=== PATIENT | female | born 1955 | race Caucasian/White ===

== ENCOUNTER 2016-04-23 21:35 | Emergency (ER) | payer OTHER ==
[~2016-04-23] VITALS: Ht 162.6 cm; Wt 81.6 kg
[~2016-04-23 21:35] MED LIST: ATEN25TA PO; FLUO20CA36 PO
[2016-04-23 22:16] VITALS: BP 124/60
== END 2016-04-23 22:17 | disposition home or self-care (01) ==
LOC: ER 21:37
DX: J40 Bronchitis, not specified as acute or chronic (principal); I10 Essential (primary) hypertension; F32.9 Major depressive disorder, single episode, unspecified; G89.29 Other chronic pain; M54.9 Dorsalgia, unspecified; Z88.0 Allergy status to penicillin
CPT/HCPCS: 71010; 93005; 99284; A4606; Z7610

== ENCOUNTER 2016-05-09 22:33 | Emergency (ER) | payer OTHER ==
[~2016-05-09] VITALS: Ht 162.6 cm; Wt 86.2 kg
[2016-05-10] MEDS ORDERED: ACETAMINOPHEN 325 MG TABLET ONE (01:04)
[2016-05-10 01:14] VITALS: BP 147/77
[2016-05-10] MEDS ORDERED: ACETAMINOPHEN 325 MG TABLET PO ONE (01:30)
== END 2016-05-10 01:15 | disposition home or self-care (01) ==
LOC: ER 22:35
DX: S60.512A Abrasion of left hand, initial encounter (principal); Y08.89XA Assault by other specified means, initial encounter; Y93.89 Activity, other specified; Y92.89 Other specified places as the place of occurrence of the external cause; Y99.8 Other external cause status; M54.9 Dorsalgia, unspecified; G89.29 Other chronic pain; F32.9 Major depressive disorder, single episode, unspecified; Z88.0 Allergy status to penicillin
CPT/HCPCS: 73130; 99284; A4606; Z7610

== ENCOUNTER 2016-06-28 18:29 | Emergency (ER) | payer OTHER ==
[~2016-06-28] VITALS: Ht 162.6 cm; Wt 81.6 kg
[2016-06-28 18:33] VITALS: BP 182/87
[2016-06-28] MEDS ORDERED: DIPH25CA83 PO (18:39)
[2016-06-28] MEDS ORDERED: OXCA150T PO (18:39)
[2016-06-28] MEDS ORDERED: FLUO20CA36 PO (18:39)
[2016-06-28] MEDS ORDERED: RISP0.253 PO (18:39)
== END 2016-06-28 19:11 | disposition home or self-care (01) ==
LOC: ER 18:31
DX: Z76.0 Encounter for issue of repeat prescription (principal); I10 Essential (primary) hypertension; F32.9 Major depressive disorder, single episode, unspecified; Z88.0 Allergy status to penicillin
CPT/HCPCS: 99283; A4606; Z7610

== ENCOUNTER 2016-08-18 18:44 | Emergency (ER) | payer OTHER ==
[~2016-08-18] VITALS: Ht 162.6 cm; Wt 81.6 kg
[~2016-08-18 18:44] MED LIST changes: -ATEN25TA PO; +DIPH25CA83 PO; +OXCA150T PO; +RISP0.253 PO
[2016-08-18 18:55] VITALS: BP 161/74
== END 2016-08-18 19:00 | disposition home or self-care (01) ==
LOC: ER 18:57
DX: R59.1 Generalized enlarged lymph nodes (principal); F32.9 Major depressive disorder, single episode, unspecified; G89.29 Other chronic pain; M54.9 Dorsalgia, unspecified; I10 Essential (primary) hypertension; Z88.0 Allergy status to penicillin
CPT/HCPCS: 99283; A4606; Z7610

== ENCOUNTER → 2017-01-09 | Emergency (ER) | payer OTHER ==
[~2017-01-09] VITALS: Ht 167.6 cm; Wt 72.6 kg
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
[2017-01-09 07:28] VITALS: BP 146/96
== END | disposition home or self-care (01) ==
LOC: ER 06:35
DX: J40 Bronchitis, not specified as acute or chronic (principal); F32.9 Major depressive disorder, single episode, unspecified; G89.29 Other chronic pain; I10 Essential (primary) hypertension; Z88.0 Allergy status to penicillin
CPT/HCPCS: 99283; A4606; Z7610

== ENCOUNTER 2017-02-20 19:16 | Emergency (ER) | payer OTHER ==
[~2017-02-20] VITALS: Ht 162.6 cm; Wt 81.6 kg
[2017-02-20 19:20] VITALS: BP 145/81
[2017-02-20] MEDS ORDERED: LIDOCAINE 1% INJ 50 ML MDV IJ ONE (20:02)
== END 2017-02-20 21:57 | disposition home or self-care (01) ==
LOC: ER 19:17
DX: J02.8 Acute pharyngitis due to other specified organisms (principal); B97.89 Other viral agents as the cause of diseases classified elsewhere; F32.9 Major depressive disorder, single episode, unspecified; G89.29 Other chronic pain; I10 Essential (primary) hypertension; Z88.0 Allergy status to penicillin
CPT/HCPCS: 87070; 87880; 99284; A4606; A6402; J3490; Z7610; 86403-TC

== ENCOUNTER 2018-07-29 20:51 | Emergency (ER) | payer OTHER ==
[~2018-07-29] VITALS: Ht 162.6 cm; Wt 81.6 kg
[~2018-07-29 20:51] MED LIST changes: -OXCA150T PO; +OXCA150T13 PO
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
--- NOTE | 2018-07-29 21:55 | NUR ---
BROUGHT BY RADIOLOGY TO CT
--- NOTE | 2018-07-29 22:46 | NUR ---
CALLED [facility] TO HAVE IMAGES READ.
--- NOTE | 2018-07-29 23:35 | NUR ---
pt ok to discharge per dr devine. Patient discharged to home in stable condition. Written and verbal after care instructions given. Patient verbalizes understanding of instruction.Patient is awake and alert to self, day, and place. Pt ambulatory with a steady gait
[2018-07-29 23:39] VITALS: BP 154/73
== END 2018-07-29 23:39 | disposition home or self-care (01) ==
LOC: ER 20:58
DX: S16.1XXA Strain of muscle, fascia and tendon at neck level, initial encounter (principal); S40.011A Contusion of right shoulder, initial encounter; S09.8XXA Other specified injuries of head, initial encounter; I10 Essential (primary) hypertension; F32.9 Major depressive disorder, single episode, unspecified; F41.9 Anxiety disorder, unspecified; G89.29 Other chronic pain; Z98.890 Other specified postprocedural states; Z88.0 Allergy status to penicillin; Z79.899 Other long term (current) drug therapy; W01.0XXA Fall on same level from slipping, tripping and stumbling without subsequent striking against object, initial encounter; Y93.89 Activity, other specified; Y92.89 Other specified places as the place of occurrence of the external cause; Y99.8 Other external cause status
CPT/HCPCS: 70450-TC; 72125-TC; 73030-TC

== ENCOUNTER 2018-12-06 21:35 | Emergency (ER) | payer OTHER ==
[~2018-12-06] VITALS: Ht 162.6 cm; Wt 72.6 kg
--- NOTE | 2018-12-06 22:00 | NUR ---
PT BIBSELF C/O ABDOMINAL PAIN RADIATING TO BACK X1 DAY. PT ALSO C/O DYSURIA, NAUSEA, VOMITTING. PT AAOX4. RESPIRATIONS EVEN AND UNLABORED. SKIN WARM AND INTACT. NO ACUTE DISTRESS NOTED AT THIS TIME. PLACED IN MONITOR, WILL CONTINUE TO MONITOR
--- NOTE | 2018-12-06 22:03 | NUR ---
URINE COLLECTED AND SENT TO LAB
[2018-12-06 22:08] LABS: APPEARANCE,URINE Slightly Cloudy (CLEAR); BILIRUBIN,URINE Negative (NEGATIVE); BLOOD, URINE Large Ery/uL (NEGATIVE); COLOR,URINE Pink (YELLOW); KETONES,URINE Negative (NEGATIVE); LEUKOCYTE ESTERASE ,URINE Small (NEGATIVE); NITRITE, URINE Negative (NEGATIVE); PROTEIN,URINE >=300 mg/dl (NEGATIVE); UGLUCOSE Negative (NEGATIVE); UROBILINOGEN,URINE 0.2 EU/dL (0.2)
[2018-12-06] MEDS ORDERED: ACETAMINOPHEN ES 500 MG TABLET ONE (22:13)
[2018-12-06] MEDS ORDERED: ONDANSETRON HCL/PF 4 MG/2 ML VIAL ONE (22:13)
--- NOTE | 2018-12-06 22:20 | NUR ---
IV INITIATED L AC 18G. LABS DRAWN FROM SITE. HEAD CONCIERGE AT BEDSIDE FOR COLLECTION. IV INTACT AND PATENT, PLACED ON SALINE LOCK
[2018-12-06 22:23] LABS: BASOPHILS # (AUTO) 0.1 /CMM (0.0-0.2); BASOPHILS % (AUTO) 0.7 % (0.0-2.0); EOSINOPHILS % (AUTO) 2.3 % (0.0-6.0); HEMATOCRIT 44 % (33-45); HEMOGLOBIN 15.4 g/dL (11.5-14.8); LYMPHOCYTES # (AUTO) 1.6 /CMM (0.8-4.8); LYMPHOCYTES % (AUTO) 19.1 % (20.0-44.0); MEAN CORPUSCULAR HGB CONC 35 g/dl (31.0-36.0); MEAN CORPUSCULAR VOLUME 88 fL (82-100); MONOCYTES # (AUTO) 0.7 /CMM (0.1-1.30); MONOCYTES % (AUTO) 8.2 % (2.0-12.0); NEUTROPHILS # (AUTO) 5.8 /CMM (1.8-8.9); NEUTROPHILS % (AUTO) 69.7 % (43.0-81.0); PLATELET COUNT (AUTO) 160 /CMM (150-450); WHITE BLOOD COUNT (AUTO) 8.3 K/uL (4.3-11.0)
[2018-12-06] MEDS ORDERED: IV NS 0.9% 250 ML IV ONE (22:28)
[2018-12-06] MEDS ORDERED: CT SWABBABLE VALVE TRANS SET 1 EA INFUS.SET MC ONE (22:28)
[2018-12-06] MEDS ORDERED: IOHEXOL-300 100 ML VIAL IV ONE (22:28)
[2018-12-06 22:30] LABS: CALCIUM, SERUM 9.3 mg/dL (8.5-10.1); CREATININE 0.7 mg/dL (0.6-1.3); POTASSIUM 3.1 mmol/L (3.5-5.1)
[2018-12-06] MEDS ORDERED: ONDANSETRON HCL/PF 4 MG/2 ML VIAL IVP ONE (22:30)
[2018-12-06] MEDS ORDERED: ACETAMINOPHEN ES 500 MG TABLET PO ONE (22:30)
[2018-12-06] MEDS ORDERED: IV NS 0.9% 1,000 ML BAG IV ONE (22:30)
--- NOTE | 2018-12-06 22:52 | NUR ---
PT BROUGHT BY RADIOLOGY TO CT
[2018-12-06] MEDS ORDERED: CIPROFLOXACIN HCL 500 MG TABLET ONE (23:52)
[2018-12-07] MEDS ORDERED: CIPROFLOXACIN HCL 500 MG TABLET PO ONE
--- NOTE | 2018-12-07 00:39 | NUR ---
Patient discharged to home in stable condition. Written and verbal after care instructions given. Patient verbalizes understanding of instruction.IV removed. Catheter intact and site benign. Pressure and 4x4 applied to site. No bleeding noted.Pt ambulatory with a steady gait
[2018-12-07 00:40] VITALS: BP 124/74
[2018-12-07 02:12] LABS: BACTERIA,URINE Few /HPF (None Seen); RBC,URINE TOO NUMEROUS TO COUN /HPF (0-2); SQUAMOUS EPITHELIAL CELL,UR Rare /HPF (None Seen); WBC,URINE TOO NUMEROUS TO COUN /HPF (0-3)
== END 2018-12-07 00:40 | disposition home or self-care (01) ==
LOC: ER 21:42
DX: N12 Tubulo-interstitial nephritis, not specified as acute or chronic (principal); K80.20 Calculus of gallbladder without cholecystitis without obstruction; I10 Essential (primary) hypertension; F32.9 Major depressive disorder, single episode, unspecified; F41.9 Anxiety disorder, unspecified; G89.29 Other chronic pain; Z98.890 Other specified postprocedural states; Z88.0 Allergy status to penicillin; Z79.899 Other long term (current) drug therapy
CPT/HCPCS: 36415; 74177; 80048; 81001; 85025; 87077; 87086; 87186; 96374; 99284; J2405; J7030; J7050; Q9967; 81000-TC

== ENCOUNTER 2018-12-10 14:49 | Emergency (ER) | payer OTHER ==
[~2018-12-10] VITALS: Ht 162.6 cm; Wt 72.6 kg
--- NOTE | 2018-12-10 14:50 | NUR ---
Pt called to triage, pt not in waiting room
--- NOTE | 2018-12-10 15:01 | NUR ---
Pt called to triage, Pt not in waiting room.
[2018-12-10 15:24] VITALS: BP 130/80
--- NOTE | 2018-12-10 15:43 | NUR ---
Patient discharged to home in stable condition. Written and verbal after care instructions given. Patient verbalizes understanding of instruction.
== END 2018-12-10 15:43 | disposition home or self-care (01) ==
LOC: ER 14:54
DX: M25.562 Pain in left knee (principal); M25.561 Pain in right knee; T36.8X5A Adverse effect of other systemic antibiotics, initial encounter; I10 Essential (primary) hypertension; G47.30 Sleep apnea, unspecified; F41.9 Anxiety disorder, unspecified; F32.9 Major depressive disorder, single episode, unspecified; G89.29 Other chronic pain; M54.9 Dorsalgia, unspecified; Z88.0 Allergy status to penicillin; Z98.890 Other specified postprocedural states; Y92.89 Other specified places as the place of occurrence of the external cause

== ENCOUNTER 2019-03-21 18:18 | Emergency (ER) | payer OTHER ==
[~2019-03-21] VITALS: Ht 162.6 cm; Wt 72.6 kg
--- NOTE | 2019-03-21 21:13 | NUR ---
PT AAOX4. Ambulatory with steady gait. pt c/o cough, congestion, fever and sore throat x 2 days. vss. Awaiting md for eval.
--- NOTE | 2019-03-21 21:42 | NUR ---
STREP, URINE, AND INF SENT TO LAB
[2019-03-21 21:52] LABS: APPEARANCE,URINE Clear (CLEAR); BILIRUBIN,URINE Negative (NEGATIVE); BLOOD, URINE Negative Ery/uL (NEGATIVE); COLOR,URINE Yellow (YELLOW); KETONES,URINE Negative (NEGATIVE); LEUKOCYTE ESTERASE ,URINE Small (NEGATIVE); NITRITE, URINE Negative (NEGATIVE); PROTEIN,URINE Negative (NEGATIVE); UGLUCOSE Negative (NEGATIVE); UROBILINOGEN,URINE 0.2 EU/dL (0.2)
[2019-03-21 22:00] LABS: BACTERIA,URINE 1+ /HPF (None Seen); RBC,URINE NONE SEEN /HPF (0-2); SQUAMOUS EPITHELIAL CELL,UR Few /HPF (None Seen)
--- NOTE | 2019-03-21 22:47 | NUR ---
Patient discharged to home in stable condition. Written and verbal after care instructions given. Patient verbalizes understanding of instruction and RX. PT asked which antibiotics she had recieved last time. Was told it was cipro. Pt given diff antibiotics. VSS. Pt ambulated with steady gait.
[2019-03-21 22:49] VITALS: BP 132/82
== END 2019-03-21 22:49 | disposition home or self-care (01) ==
LOC: ER 18:22
DX: J10.1 Influenza due to other identified influenza virus with other respiratory manifestations (principal); I10 Essential (primary) hypertension; G47.33 Obstructive sleep apnea (adult) (pediatric); M54.9 Dorsalgia, unspecified; G89.29 Other chronic pain; Z98.890 Other specified postprocedural states; Z88.0 Allergy status to penicillin; Z79.899 Other long term (current) drug therapy
CPT/HCPCS: 81000-TC; 86403-TC; 87070-TC; 87086-TC

== ENCOUNTER 2019-12-30 20:26 | Emergency (ER) | payer OTHER ==
[~2019-12-30] VITALS: Ht 162.6 cm; Wt 77.1 kg
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
--- NOTE | 2019-12-30 20:57 | NUR ---
X RAY AT BED SIDE
[2019-12-30] MEDS ORDERED: ACETAMINOPHEN 325 MG TABLET PO ONE (21:00)
[2019-12-30] MEDS ORDERED: ACETAMINOPHEN ES 500 MG TABLET ONE (21:09)
--- NOTE | 2019-12-30 21:09 | NUR ---
back from ct
--- NOTE | 2019-12-30 22:12 | NUR ---
EMT AT BED SIDE TO APPLY SPLINT
--- NOTE | 2019-12-30 22:18 | NUR ---
PT IS MEDICALLY STABLE FOR D/C. L RING FINGER SPLINT APPLIED. Patient discharged to home in stable condition. RX AND Written and verbal after care instructions given. Patient verbalizes understanding of instruction.
[2019-12-30 22:20] VITALS: BP 145/92
== END 2019-12-30 22:21 | disposition home or self-care (01) ==
LOC: ER 20:29
DX: S60.415A Abrasion of left ring finger, initial encounter (principal); M54.2 Cervicalgia; M25.512 Pain in left shoulder; I10 Essential (primary) hypertension; F32.9 Major depressive disorder, single episode, unspecified; F41.9 Anxiety disorder, unspecified; G89.29 Other chronic pain; M54.9 Dorsalgia, unspecified; Z98.890 Other specified postprocedural states; Z88.0 Allergy status to penicillin; Z88.2 Allergy status to sulfonamides; Z79.899 Other long term (current) drug therapy; Y08.89XA Assault by other specified means, initial encounter; Y93.89 Activity, other specified; Y92.89 Other specified places as the place of occurrence of the external cause; Y99.8 Other external cause status
CPT/HCPCS: 72125-TC; 73140-TC

== ENCOUNTER 2020-09-10 18:50 | Emergency (ER) | payer OTHER ==
[~2020-09-10] VITALS: Ht 162.6 cm; Wt 76.7 kg
[2020-09-10 20:29] VITALS: BP 152/84
[2020-09-10] MEDS ORDERED: LIDOCAINE 1% INJ 50 ML MDV IJ ONE (21:45)
[2020-09-10] MEDS ORDERED: LIDOCAINE HCL/PF 1% 30 ML VIAL IJ ONE (22:00)
[2020-09-10] MEDS ORDERED: CLIN300C12 PO (22:53)
== END 2020-09-10 23:24 | disposition home or self-care (01) ==
LOC: ER 18:52
DX: L03.031 Cellulitis of right toe (principal); M79.674 Pain in right toe(s); I10 Essential (primary) hypertension; F32.9 Major depressive disorder, single episode, unspecified; F41.9 Anxiety disorder, unspecified; G89.29 Other chronic pain; Z98.890 Other specified postprocedural states; Z88.0 Allergy status to penicillin; Z88.2 Allergy status to sulfonamides; Z79.899 Other long term (current) drug therapy
CPT/HCPCS: 10060; 73660; 99283; J3490

== ENCOUNTER 2021-08-25 10:28 | Emergency (ER) | payer OTHER ==
[~2021-08-25] VITALS: Ht 162.6 cm; Wt 78.5 kg
[~2021-08-25 10:28] MED LIST changes: +CLIN300C12 PO
[2021-08-25 10:32] VITALS: BP 155/90
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
--- NOTE | 2021-08-25 10:47 | NUR ---
DR. BARAHONA AT BEDSIDE W/ PT
[2021-08-25] MEDS ORDERED: DOXY-326 PO (10:52)
[2021-08-25] MEDS ORDERED: KETOROLAC TROMETHAMINE INJ 30 MG/ML VIAL ONE (10:53)
[2021-08-25] MEDS ORDERED: KETOROLAC TROMETHAMINE INJ 30 MG/ML VIAL IM ONE (11:00)
--- NOTE | 2021-08-25 11:07 | NUR ---
COVID SWAB COLLECTED AND SENT TO LAB
--- NOTE | 2021-08-25 12:26 | NUR ---
Patient discharged to home in stable condition. Written and verbal after care instructions given. Patient verbalizes understanding of instruction.
--- NOTE | 2021-08-25 12:27 | NUR ---
Provided home isolation instructions as applicable for COVID
== END 2021-08-25 12:26 | disposition home or self-care (01) ==
LOC: ER 10:30
DX: S61.210A Laceration without foreign body of right index finger without damage to nail, initial encounter (principal); W54.0XXA Bitten by dog, initial encounter; Y92.89 Other specified places as the place of occurrence of the external cause; U07.1 COVID-19; I10 Essential (primary) hypertension; G47.30 Sleep apnea, unspecified; Z98.84 Bariatric surgery status; Z88.0 Allergy status to penicillin; Z88.2 Allergy status to sulfonamides
CPT/HCPCS: 73130; 87426; 96372; 99284; C9803; J1885

== ENCOUNTER 2022-01-27 22:35 | Emergency (ER) | payer OTHER ==
[~2022-01-27] VITALS: Ht 162.6 cm; Wt 78.5 kg
[~2022-01-27 22:35] MED LIST changes: +DOXY-326 PO
[2022-01-27 22:47] VITALS: BP 172/82
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
--- NOTE | 2022-01-27 23:30 | NUR ---
Patient discharged to home in stable condition. Written and verbal after care instructions given. Patient verbalizes understanding of instruction. Pt ambulatory with a steady gait
== END 2022-01-27 23:30 | disposition home or self-care (01) ==
LOC: ER 22:36
DX: Z48.00 Encounter for change or removal of nonsurgical wound dressing (principal); I10 Essential (primary) hypertension; F32.A Depression, unspecified; F41.9 Anxiety disorder, unspecified; G89.29 Other chronic pain; Z88.0 Allergy status to penicillin; Z88.2 Allergy status to sulfonamides; Z79.899 Other long term (current) drug therapy